=== PATIENT | female | born 1985 | race Two or more races ===

== ENCOUNTER 2018-06-13 20:24 | Emergency (ER) | payer MEDICAID ==
[~2018-06-13] VITALS: Ht 170.2 cm; Wt 79.7 kg
[2018-06-13 20:53] LABS: CLARITY,URINE SLIGHTLY CLOUDY (Clear); COLOR,URINE YELLOW (Yellow); GLUCOSE, URINE NEGATIVE (Neg); KETONES,URINE NEGATIVE (Neg); LEUKOCYTE ESTERASE ,URINE NEGATIVE (Neg); NITRITES, URINE NEGATIVE (Neg); OCCULT BLOOD,URINE NEGATIVE (Neg); PROTEIN,URINE TRACE mg/dl (Neg); UROBILINOGEN,URINE 0.2 E.U/dL (0.2-1.0)
[2018-06-13 20:55] LABS: URINE HCG NEGATIVE (NEG)
[2018-06-13 20:59] LABS: UA COLLECTION TYPE CLN CATCH MIDSTREAM
[2018-06-13 21:01] LABS: BACTERIA,URINE 1+ /HPF (Neg); HYALINE CASTS 0-3 /LPF (NEGATIVE); MUCUS STRANDS MANY /LPF (Neg); RBC,URINE NONE SEEN /HPF (0-2); SQUAMOUS EPITHELIAL CELL,UR MANY /LPF (FEW); WBC,URINE 0-4 /HPF (0-4)
[2018-06-13 21:02] LABS: YEAST FEW /HPF (NEGATIVE)
[2018-06-14] MEDS ORDERED: azithromycin 250mg tablet PO ONE (00:10)
[2018-06-14] MEDS ORDERED: CefTRIAXone 250MG inj IM ONE (00:10)
[2018-06-14] MEDS ORDERED: fluconazole 150mg tablet PO ONE (00:10)
[2018-06-14] MEDS ORDERED: metroNIDAZOLE 500mg tablet PO ONE (00:10)
[2018-06-14] MEDS ORDERED: CefTRIAXone 250MG IM Kit w/LIDOcaine IM ONE (00:25)
[2018-06-14 00:34] VITALS: BP 127/77
[2018-06-14] MEDS ORDERED: NEOM28.37 TOP (04:41)
== END 2018-06-14 00:38 | disposition home or self-care (01) ==
LOC: ER 20:24
DX: B37.3 Candidiasis of vulva and vagina (principal); F17.200 Nicotine dependence, unspecified, uncomplicated; Z98.890 Other specified postprocedural states
CPT/HCPCS: 36415; 81001; 81025; 87210; 87491; 87591; 96372; 99284; J0696; J3490

== ENCOUNTER 2018-06-14 04:00 | Emergency (ER) | payer MEDICAID ==
[~2018-06-14] VITALS: Ht 170.2 cm; Wt 77.5 kg
[2018-06-14 04:08] VITALS: BP 129/69
[2018-06-14] MEDS ORDERED: NEOM28.37 TOP (04:41)
[2018-06-14] MEDS ORDERED: neomy sulf/bacitrac zn/polymixin b oint 14.2 gm tube TP SCH (08:00)
== END 2018-06-14 05:52 | disposition home or self-care (01) ==
LOC: ER 04:01
DX: S90.822A Blister (nonthermal), left foot, initial encounter (principal); Z98.890 Other specified postprocedural states; Z79.899 Other long term (current) drug therapy; X58.XXXA Exposure to other specified factors, initial encounter; Y93.89 Activity, other specified; Y92.89 Other specified places as the place of occurrence of the external cause; Y99.8 Other external cause status
CPT/HCPCS: 99282

== ENCOUNTER 2023-09-30 10:13 | Emergency (ER) | payer MEDICAID ==
[~2023-09-30] VITALS: Ht 170.2 cm; Wt 97.7 kg
[~2023-09-30 10:13] MED LIST: NEOM28.37 TOP
[2023-09-30 10:49] VITALS: BP 122/71; PULSE 83; O2SAT 100
[2023-09-30 11:28] LABS: BILIRUBIN,URINE NEGATIVE (Neg); CLARITY,URINE TURBID (Clear); COLOR,URINE YELLOW (Yellow); GLUCOSE, URINE NEGATIVE (Neg); KETONES,URINE 15 mg/dl (Neg); LEUKOCYTE ESTERASE ,URINE NEGATIVE (Neg); NITRITES, URINE POSITIVE (Neg); OCCULT BLOOD,URINE NEGATIVE (Neg); PH,URINE 5.5 (4.8-8.0); PROTEIN,URINE NEGATIVE (Neg); UROBILINOGEN,URINE 0.2 E.U/dL (0.2-1.0)
[2023-09-30 11:30] LABS: UA COLLECTION TYPE CLN CATCH MIDSTREAM
[2023-09-30 11:32] LABS: URINE HCG NEGATIVE (NEG)
[2023-09-30 11:36] LABS: BACTERIA,URINE 4+ /HPF (Neg)
[2023-09-30 11:37] LABS: RBC,URINE 0-2 /HPF (0-2); SQUAMOUS EPITHELIAL CELL,UR MANY /LPF (FEW); TRANSITIONAL EPI CELLS,URINE MODERATE /HPF; WBC,URINE 0-4 /HPF (0-4)
[2023-09-30 11:52] VITALS: RESP 18
[2023-09-30] MEDS ORDERED: CEFD300C3 PO (11:57)
[2023-09-30 12:02] VITALS: TEMP 97.7
== END 2023-09-30 12:09 | disposition home or self-care (01) ==
LOC: ER 10:14
DX: N39.0 Urinary tract infection, site not specified (principal)
CPT/HCPCS: 81001; 81025; 99283